=== PATIENT | male | born 1975 | race Caucasian/White ===

== ENCOUNTER 2018-03-19 00:22 | Emergency (ER) | payer OTHER, SELFPAY ==
[2018-03-19] MEDS ORDERED: LIDOCAINE 1% W/EPI 1:100,000 MDV 50 ML VIAL ONE (00:49)
--- NOTE | 2018-03-19 01:54 | EDPHYS ---
Physician Documentation [facility] Name: Rodrigo Rasmussen Age: 42 yrs Sex: Male : 1975 Arrival Date: 03/19/2018 Time: 00:22 Bed 16 Private MD: ED Physician Samuel Campos HPI: 03/19 00:45 This 42 yrs old Male presents to ER via Ambulatory with complaints of cp Laceration - Facial. 00:45 The patient or guardian reports a laceration. The complaints affect the face and left cp cheek. Context of injury: patient reports he awoke suddenly and struck left facial cheek against wall. 00:45 Onset: The symptoms/episode began/occurred just prior to arrival. Associated signs and cp symptoms: The patient has no apparent associated signs or symptoms. Historical: - Allergies: 00:34 No Known Allergies; ea - Home Meds: 00:34 None [Active]; ea - PMHx: 00:34 None; ea - PSHx: 00:34 None; ea - Immunization history:: Adult Immunizations up to date. - Social history:: Smoking status: Patient/guardian denies using tobacco. - Ebola Screening: : No symptoms or risks identified at this time. ROS: 00:50 Constitutional: Negative for body aches, chills, fever, poor PO intake. cp 00:50 ENT: Negative for drainage from ear(s), ear pain, Teeth pain sore throat, difficulty cp swallowing, difficulty handling secretions. 00:50 Cardiovascular: Negative for chest pain. 00:50 Respiratory: Negative for cough, shortness of breath, wheezing. 00:50 Skin: Positive for laceration(s), of the face and left cheek, Negative for cellulitis, rash. 00:50 Neuro: Negative for altered mental status, dizziness, loss of consciousness, weakness. 00:50 All other systems are negative. Exam: 00:55 Constitutional: The patient appears in no acute distress, alert, awake, non-toxic, well cp developed, well nourished. 00:55 Head/face: Noted is a laceration(s), that is deep, of the left cheek and face, cp swelling, that is mild, tenderness, that is mild, Sinus tenderness, is not appreciated. 00:55 Eyes: Periorbital structures: appear normal, Pupils: equal, round, and reactive to light and accomodation, Extraocular movements: intact throughout, Conjunctiva: normal, no exudate, no injection, Lids and lashes: appear normal, bilaterally. 00:55 ENT: External ear(s): are unremarkable, Ear canal(s): are normal, clear, TM's: dullness, bilaterally, Nose: is normal, Mouth: Lips: moist, Oral mucosa: pink and intact, moist, Posterior pharynx: is normal, airway is patent, no erythema, no exudate, Voice: is normal. 00:55 Neck: C-spine: vertebral tenderness, is not appreciated, crepitus, is not appreciated, ROM/movement: is normal, is supple, without pain, no range of motions limitations, no nuchal rigidity. 00:55 Chest/axilla: Inspection: normal, Palpation: is normal, no crepitus, no tenderness. 00:55 Cardiovascular: Rate: normal, Rhythm: regular. 00:55 Respiratory: the patient does not display signs of respiratory distress, Respirations: normal, no use of accessory muscles, no retractions, no splinting, no tachypnea, Breath sounds: are clear throughout, no decreased breath sounds, no stridor, no wheezing. 00:55 Abdomen/GI: Exam negative for discomfort, distension, guarding, Inspection: abdomen appears normal. 00:55 Back: pain, is absent, ROM is normal. 00:55 Neuro: Orientation: to person, place \T\ time. Mentation: lucid, able to follow commands, Cerebellar function: is grossly normal, Motor: moves all fours, strength is normal, Sensation: no obvious gross deficits. Vital Signs: 00:36 BP 133 / 86; Pulse 80; Resp 18; Temp 97.6(O); Pulse Ox 97% on R/A; Weight 65.32 kg; ea Height 5 ft. 9 in. (175.26 cm); Pain 3/10; 01:28 BP 119 / 83; Pulse 78; Resp 18; Pulse Ox 99% ; ea 02:00 BP 115 / 77; Pulse 72; Resp 18; Pulse Ox 99% ; ea 00:36 Body Mass Index 21.26 (65.32 kg, 175.26 cm) ea Giselle Coma Score: 00:45 Eye Response: spontaneous(4). Verbal Response: oriented(5). Motor Response: obeys cp commands(6). Total: 15. 01:52 Eye Response: spontaneous(4). Verbal Response: oriented(5). Motor Response: obeys cp commands(6). Total: 15. Laceration: 01:42 Wound Repair of 2.5cm ( 1.0in ) subcutaneous laceration to left facial cheek. Linear cp shaped.. Distal neuro/vascular/tendon intact. Anesthesia: Wound infiltrated with 4 mls of 1% lidocaine w/ Epi. Wound prep: Simple cleansing by me. Skin closed with 4 6-0 Prolene using interrupted sutures and sterile technique. Dressed with Bacitracin, bandaid. Patient tolerated well. MDM: 00:24 Patient medically screened. cp 01:00 Differential diagnosis: Contusion of Laceration of Intracranial bleed- Concussion cp cerebral contusion, fracture. 01:52 Data reviewed: vital signs, nurses notes, and as a result, I will discharge patient. cp Counseling: I had a detailed discussion with the patient and/or guardian regarding: the historical points, exam findings, and any diagnostic results supporting the discharge/admit diagnosis, to return to the emergency department if symptoms worsen or persist or if there are any questions or concerns that arise at home. Response to treatment: the patient's symptoms have markedly improved after treatment, and as a result, I will discharge patient. 03/19 00:38 Order name: Dressing - Wound; Complete Time: 01:23 cp 03/19 00:38 Order name: Gloves, Sterile; Complete Time: :23 cp 03/19 00:38 Order name: Setup Suture Tray; Complete Time: cp Administered Medications: : Drug: Lidocaine-Epinephrine -1%: (1:100,000) 10 ml {Note: administered by provider.} ea Volume: 20 ml; Route: Infiltration; Disposition: 03:30 Chart complete. cp Disposition: 03/19/18 01:53 Discharged to Home. Impression: Laceration without foreign body of left cheek and temporomandibular area. - Condition is Stable. - Discharge Instructions: Facial Laceration. - Medication Reconciliation Form, Thank You Letter, Antibiotic Education, Prescription Opioid Use form. - Follow up: Private Physician; When: 1 week; Reason: Staple/Suture removal. - Problem is new. - Symptoms have improved. Addendum: 03/20/2018 02:53 Co-signature as Attending Physician, Samuel Campos MD I agree with the assessment and t w4 plan of care. Attestation: The patient's history, exam findings, diagnostics, and a summary of any interventions or procedures was reviewed in detail with Clyde CHANDLER. Signatures: Clyde Cole PA PA cp Antunez, Elena, RN RN Samuel Kilpatrick MD MD tw4 Corrections: (The following items were deleted from the chart) 03/19 02:28 01:53 03/19/2018 01:53 Discharged to Home. Impression: Laceration without foreign body ea of left cheek and temporomandibular area. Condition is Stable. Forms are Medication Reconciliation Form, Thank You Letter, Antibiotic Education, Prescription Opioid Use. Follow up: Private Physician; When: 1 week; Reason: Staple/Suture removal. Problem is new. Symptoms have improved. cp
--- NOTE | 2018-03-19 01:54 | ER ---
Nurse's Notes [facility] Name: Rodrigo Rasmussen Age: 42 yrs Sex: Male : 1975 Arrival Date: 03/19/2018 Time: 00:22 Bed 16 Private MD: Diagnosis: Laceration without foreign body of left cheek and temporomandibular area Presentation: 03/19 00:30 Presenting complaint: Patient states: Patient reports he was having a bad dream, got up ea in a panic and accidentally hit his face on something sharp. Transition of care: patient was not received from another setting of care. Complicating Factors: There are no complicating factors for this patient. Onset of symptoms was March 19, 2018. Risk Assessment: Do you want to hurt yourself or someone else? Patient reports no desire to harm self or others. Initial Sepsis Screen: Does the patient meet any 2 criteria? No. Patient's initial sepsis screen is negative. Does the patient have a suspected source of infection? No. Patient's initial sepsis screen is negative. Care prior to arrival: Bleeding of injury controlled. Injury cleansed. 00:30 Method Of Arrival: Ambulatory ea 00:30 Acuity: LARISSA 4 ea Triage Assessment: 00:34 General: Appears in no apparent distress. Behavior is calm, cooperative, appropriate ea for age, Pt denies LOC. . Pain: Complains of pain in left cheek Pain does not radiate. Pain currently is 3 out of 10 on a pain scale. EENT: No signs and/or symptoms were reported regarding the EENT system. Neuro: Level of Consciousness is awake, alert, obeys commands, Oriented to person, place, time, situation. Cardiovascular: Patient's skin is warm and dry. Respiratory: Airway is patent Respiratory effort is even, unlabored, Respiratory pattern is regular, symmetrical. GI: No signs and/or symptoms were reported involving the gastrointestinal system. : No signs and/or symptoms were reported regarding the genitourinary system. Derm: Skin is pink, warm \T\ dry. Injury Description: Laceration sustained to left cheek is clean, 0.5 to 2.5 cm long, not bleeding, was sustained 30-60 minutes ago. is bleeding a small amount. Historical: - Allergies: 00:34 No Known Allergies; ea - Home Meds: 00:34 None [Active]; ea - PMHx: 00:34 None; ea - PSHx: 00:34 None; ea - Immunization history:: Adult Immunizations up to date. - Social history:: Smoking status: Patient/guardian denies using tobacco. - Ebola Screening: : No symptoms or risks identified at this time. Screenin:36 Abuse screen: Denies threats or abuse. Nutritional screening: No deficits noted. ea Tuberculosis screening: No symptoms or risk factors identified. Fall Risk None identified. Assessment: 01:27 Reassessment: Patient and/or family updated on plan of care and expected duration. Pain ea level reassessed. Patient is alert, oriented x 3, equal unlabored respirations, skin warm/dry/pink. 02:20 Reassessment: Patient and/or family updated on plan of care and expected duration. Pain ea level reassessed. Patient is alert, oriented x 3, equal unlabored respirations, skin warm/dry/pink. Discharge instructions given to patient, verbalized the understanding of instruction. Vital Signs: 00:36 BP 133 / 86; Pulse 80; Resp 18; Temp 97.6(O); Pulse Ox 97% on R/A; Weight 65.32 kg; ea Height 5 ft. 9 in. (175.26 cm); Pain 3/10; 01:28 BP 119 / 83; Pulse 78; Resp 18; Pulse Ox 99% ; ea 02:00 BP 115 / 77; Pulse 72; Resp 18; Pulse Ox 99% ; ea 00:36 Body Mass Index 21.26 (65.32 kg, 175.26 cm) ea Giselle Coma Score: 00:45 Eye Response: spontaneous(4). Verbal Response: oriented(5). Motor Response: obeys cp commands(6). Total: 15. 01:52 Eye Response: spontaneous(4). Verbal Response: oriented(5). Motor Response: obeys cp commands(6). Total: 15. ED Course: 00:22 Patient arrived in ED. ds1 00:24 Clyde Cole PA is PHCP. cp 00:24 Samuel Campos MD is Attending Physician. cp 00:30 Peggy Gilmore RN is Primary Nurse. ea 00:33 Triage completed. ea 00:37 Arm band placed on right wrist. ea 00:37 Patient has correct armband on for positive identification. Bed in low position. Call ea light in reach. Side rails up X 1. 01:28 Assist provider with laceration repair on left cheek that was between 2.6 to 7.5 cm ea using sutures. Set up tray. Performed by Clyde CHANDLER Dressed with Neosporin, Patient tolerated well. 02:25 Patient did not have IV access during this emergency room visit. ea Administered Medications: 01:22 Drug: Lidocaine-Epinephrine -1%: (1:100,000) 10 ml {Note: administered by provider.} ea Volume: 20 ml; Route: Infiltration; Outcome: 01:53 Discharge ordered by MD. cp 02:22 Discharged to home ambulatory, with family. ea 02:22 Condition: improved 02:22 Discharge instructions given to patient, Instructed on discharge instructions, follow up and referral plans. Demonstrated understanding of instructions, follow-up care. 02:28 Patient left the ED. ea Signatures: Tamela Nichols ds1 Clyde Cole PA PA cp Antunez, Elena RN RN ea Corrections: (The following items were deleted from the chart) 00:38 00:34 General: Appears in no apparent distress. Behavior is calm, cooperative, ea appropriate for age, ea
== END 2018-03-19 02:28 | disposition home or self-care (01) ==
LOC: ER 00:22
PROC: 0JQ10ZZ Repair Face Subcutaneous Tissue and Fascia, Open Approach (ICD-10-PCS; principal; 2018-03-19)
DX: S01.412A Laceration without foreign body of left cheek and temporomandibular area, initial encounter (principal); W22.8XXA Striking against or struck by other objects, initial encounter; Y93.9 Activity, unspecified; Y92.009 Unspecified place in unspecified non-institutional (private) residence as the place of occurrence of the external cause
CPT/HCPCS: 99283

== ENCOUNTER 2018-03-24 10:31 | Emergency (ER) | payer OTHER ==
--- NOTE | 2018-03-24 10:48 | EDPHYS ---
Physician Documentation [facility] Name: Rodrigo Rasmussen Age: 42 yrs Sex: Male : 1975 Arrival Date: 03/24/2018 Time: 10:37 Bed Waiting Private MD: None, None ED Physician Azar Aguirre HPI: 03/24 10:47 This 42 yrs old Male presents to ER via Ambulatory with complaints of Suture jmm Removal. 10:47 The patient has sutures on the left cheek. Previous treatment: The patient was jmm initially treated 5 day(s) ago. Sutures/shannen progress: The patient has no c/o's. The wound is well-healing with no redness, swelling, discharge, or dehiscence reported. The patient has not experienced similar symptoms in the past. Patient denies fever, purulent drainage. Historical: - Allergies: 10:40 No Known Allergies; aj - Home Meds: 10:40 None [Active]; aj - PMHx: 10:40 None; aj - PSHx: 10:40 None; aj - Immunization history:: Last tetanus immunization: unknown. - Social history:: Smoking status: Patient/guardian denies using tobacco. - Ebola Screening: : Patient negative for fever greater than or equal to 101.5 degrees Fahrenheit, and additional compatible Ebola Virus Disease symptoms Patient denies exposure to infectious person Patient denies travel to an Ebola-affected area in the 21 days before illness onset No symptoms or risks identified at this time. ROS: 10:47 Constitutional: Negative for fever, chills, and weight loss. jmm 10:47 Skin: Positive for laceration(s). 10:47 All other systems are negative. Exam: 10:47 ENT: Moist Mucus Membranes Chest/axilla: Normal chest wall appearance and motion. jmm Cardiovascular: Regular rate and rhythm. No edema appreciated Respiratory: Normal respirations, no respiratory distress appreciated 10:47 Constitutional: The patient appears in no acute distress, alert, awake. 10:47 Skin: healing laceration noted ot the left cheek. [address] no purulent drainage or surrounding induration of the skin is appreciated. . 10:47 Neuro: Orientation: is normal, Motor: is normal. Vital Signs: 10:40 BP 112 / 86; Pulse 63; Resp 16; Temp 98.2; Pulse Ox 97% on R/A; Weight 65.77 kg; Height aj 5 ft. 9 in. (175.26 cm); 10:40 Body Mass Index 21.41 (65.77 kg, 175.26 cm) Procedures: 10:47 Suture/Staple removal: Removed 4 sutures, from left cheek, site appears well healed, shan Patient tolerated well. MDM: 10:47 Patient medically screened. [facility] 10:48 Data reviewed: vital signs, nurses notes. [facility] 10:48 Counseling: I had a detailed discussion with the patient and/or guardian regarding: the [facility] historical points, exam findings, and any diagnostic results supporting the discharge/admit diagnosis, the need for outpatient follow up, to return to the emergency department if symptoms worsen or persist or if there are any questions or concerns that arise at home. ED course: Patient given wound infection return precautions. Administered Medications: No medications were administered Disposition: 03/24/18 10:47 Discharged to Home. Impression: Encounter for removal of sutures. - Condition is Stable. - Medication Reconciliation Form, Thank You Letter, Antibiotic Education, Prescription Opioid Use form. - Follow up: Private Physician; When: 2 - 3 days; Reason: Recheck today's complaints, Continuance of care, Re-evaluation by your physician. Signatures: Torri Parisi, RANJITH RN Maximo Youssef PA PA jmm
--- NOTE | 2018-03-24 10:48 | ER ---
Nurse's Notes [facility] Name: Rodrigo Rasmussen Age: 42 yrs Sex: Male : 1975 Arrival Date: 03/24/2018 Time: 10:37 Bed Waiting Private MD: None, None Diagnosis: Encounter for removal of sutures Presentation: 03/24 10:38 Presenting complaint: Patient states: Here for suture removal for sutures place on left aj cheek Tuesday. No drainage or pain reported. Wound appears approximated with no S\T\S of infection. Transition of care: patient was not received from another setting of care. Onset of symptoms was March 19, 2018. Risk Assessment: Do you want to hurt yourself or someone else? Patient reports no desire to harm self or others. Initial Sepsis Screen: Does the patient meet any 2 criteria? No. Patient's initial sepsis screen is negative. Does the patient have a suspected source of infection? No. Patient's initial sepsis screen is negative. Care prior to arrival: None. 10:38 Method Of Arrival: Ambulatory 10:38 Acuity: LARISSA 5 aj Triage Assessment: 10:40 General: Appears in no apparent distress. comfortable, Behavior is calm, cooperative, aj appropriate for age. Pain: Denies pain. Neuro: Level of Consciousness is awake, alert, obeys commands, Oriented to person, place, time, situation, Appropriate for age. Respiratory: Airway is patent Respiratory effort is even, unlabored, Respiratory pattern is regular, symmetrical. Derm: Skin is intact, is healthy with good turgor, Skin is pink, warm \T\ dry. normal. Derm: Wound noted left cheek. Historical: - Allergies: 10:40 No Known Allergies; aj - Home Meds: 10:40 None [Active]; aj - PMHx: 10:40 None; aj - PSHx: 10:40 None; aj - Immunization history:: Last tetanus immunization: unknown. - Social history:: Smoking status: Patient/guardian denies using tobacco. - Ebola Screening: : Patient negative for fever greater than or equal to 101.5 degrees Fahrenheit, and additional compatible Ebola Virus Disease symptoms Patient denies exposure to infectious person Patient denies travel to an Ebola-affected area in the 21 days before illness onset No symptoms or risks identified at this time. Screenin:42 Abuse screen: Denies threats or abuse. Denies injuries from another. Nutritional aj screening: No deficits noted. Tuberculosis screening: No symptoms or risk factors identified. Fall Risk None identified. Vital Signs: 10:40 BP 112 / 86; Pulse 63; Resp 16; Temp 98.2; Pulse Ox 97% on R/A; Weight 65.77 kg; Height aj 5 ft. 9 in. (175.26 cm); 10:40 Body Mass Index 21.41 (65.77 kg, 175.26 cm) aj ED Course: 10:37 Patient arrived in ED. sb2 10:37 None, None is Private Physician. sb2 10:40 Triage completed. aj 10:40 Arm band placed on left wrist. Patient placed in waiting room, Patient notified of wait aj time. 10:42 Patient has correct armband on for positive identification. aj 10:42 suture removal. Patient did not have IV access during this emergency room visit. aj 10:44 Patient Sutures removed in triage. aj 10:46 Maximo Duffy PA is PHCP. shan 10:46 Azar Aguirre MD is Attending Physician. shan Administered Medications: No medications were administered Outcome: 10:42 Discharged to home ambulatory. aj 10:42 Condition: good 10:42 Discharge instructions given to patient, Instructed on discharge instructions, follow up and referral plans. wound care, Demonstrated understanding of instructions, follow-up care, wound care. 10:47 Discharge ordered by . jmpaul 10:47 Patient left the ED. shan Signatures: Torri Parisi, RN RN Maximo Youssef PA PA jmm Billeau, Sheri sb2
== END 2018-03-24 10:47 | disposition home or self-care (01) ==
LOC: ER 10:31
DX: Z48.02 Encounter for removal of sutures (principal)
CPT/HCPCS: 99281